=== PATIENT | male | born 1985 | race Caucasian/White ===

== ENCOUNTER 2023-07-21 03:30 | Emergency (ER) | payer SELFPAY ==
[~2023-07-21] VITALS: Ht 177.8 cm; Wt 61.4 kg
[2023-07-21 03:31] VITALS: TEMP 97.5
[2023-07-21] MEDS ORDERED: AMOXICILLIN 8751 TAB PO ×3 (04:07→11:05)
[2023-07-21 06:22] VITALS: BP 116/65; PULSE 99
== END 2023-07-21 06:22 | disposition home or self-care (01) ==
LOC: COL.ER 03:30
DX: S02.2XXA Fracture of nasal bones, initial encounter for closed fracture (principal); S02.401A Maxillary fracture, unspecified side, initial encounter for closed fracture; S01.81XA Laceration without foreign body of other part of head, initial encounter; F10.129 Alcohol abuse with intoxication, unspecified; V89.2XXA Person injured in unspecified motor-vehicle accident, traffic, initial encounter; Y92.410 Unspecified street and highway as the place of occurrence of the external cause